=== PATIENT | male | born 1960 | race Caucasian/White ===

== ENCOUNTER 2017-03-13 19:55 | Emergency (ER) | payer MEDICARE, BC ==
[~2017-03-13] VITALS: Ht 172.7 cm; Wt 76.2 kg
[~2017-03-13 19:55] MED LIST: BENADRYL25 M2 PO; BUSPAR10 MG PO; COREG CR20 MG PO; COUMADIN5 MG ORAL; DIOVAN160 MG PO; LEVAQUIN500 MG PO; PREDNISONE20 MG ORAL
[2017-03-13] MEDS ORDERED: SPIRONOLACTONE25 MG ORAL (20:31)
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
[2017-03-13] MEDS ORDERED: Bacitracin Oint UD TOPIC ONE ×2 (21:41→21:45)
[2017-03-13] MEDS ORDERED: KEFLEX500 MG ORAL (21:42)
[2017-03-13] MEDS ORDERED: Cephalexin 500mg cap ORAL ONE (21:45)
[2017-03-13 21:46] VITALS: BP 124/70
[2017-03-13 21:48] VITALS: BP 124/70
--- NOTE | 2017-03-14 08:29 | Diagnostic Imaging Report ---
Indications: Head trauma, pain Technique: Continuous helical CT imaging of the brain was performed with automatic exposure control on a Siemens sensation [address] scanner. Axial and coronal images were reconstructed at 5 mm slice thickness and interval. CTDI volume(s): 70 mGy Total DLP: 1361 mGy-cm Findings: Comparison: None. Small circumscribed focus of low attenuation/parenchymal loss inferior aspect left putamen. Multiple small nodular calcifications in the parenchyma both cerebral hemispheres.. No evidence of mass or hemorrhage, other attenuation abnormality, mass effect, midline shift, hydrocephalus or increased intracranial pressure. Bone window images are unremarkable. Mucoperiosteal thickening bilateral ethmoid, right maxillary sinuses. Remainder visualized paranasal sinuses and mastoid air cells are clear. 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 This correlates with Dr. Fleming's preliminary report. The CT scanner at [facility] is accredited by the [employer] and the scans are performed using protocols designed to limit radiation exposure to as low as reasonably achievable to attain images of sufficient resolution adequate for diagnostic evaluation.
== END 2017-03-13 21:49 | disposition home or self-care (01) ==
LOC: EMR 20:10
DX: S01.511A Laceration without foreign body of lip, initial encounter (principal); S01.512A Laceration without foreign body of oral cavity, initial encounter; S01.01XA Laceration without foreign body of scalp, initial encounter; Y04.2XXA Assault by strike against or bumped into by another person, initial encounter; Y92.89 Other specified places as the place of occurrence of the external cause; Z85.46 Personal history of malignant neoplasm of prostate; J32.9 Chronic sinusitis, unspecified; B69.0 Cysticercosis of central nervous system
CPT/HCPCS: 70450

== ENCOUNTER 2017-03-21 16:18 | Emergency (ER) | payer MEDICARE, BC ==
[~2017-03-21] VITALS: Ht 172.7 cm; Wt 76.7 kg
[~2017-03-21 16:18] MED LIST changes: +KEFLEX500 MG ORAL; +SPIRONOLACTONE25 MG ORAL
[2017-03-21 16:25] VITALS: BP 148/79
[2017-03-21 17:00] VITALS: BP 148/79
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
== END 2017-03-21 17:00 | disposition home or self-care (01) ==
LOC: EMR 16:45
DX: S01.01XD Laceration without foreign body of scalp, subsequent encounter (principal); Z48.02 Encounter for removal of sutures; S51.812D Laceration without foreign body of left forearm, subsequent encounter; S01.511D Laceration without foreign body of lip, subsequent encounter; X58.XXXD Exposure to other specified factors, subsequent encounter
CPT/HCPCS: 99281

== ENCOUNTER 2018-12-29 17:48 | Emergency (ER) | payer MEDICARE, BC ==
[~2018-12-29] VITALS: Ht 172.7 cm; Wt 78.9 kg
[2018-12-29 18:00] VITALS: BP 137/75
--- NOTE | 2018-12-29 18:00 | NUR ---
ED Nurse Note: pt walked in due to laceration on right 5th finger and left thumb happend last night about 10:30pm when pt is washing dishes and held a mesh cutter glassware. pt denies pain. pt wound noted to be bleeding on the 5th finger, has a irregular laceration, wound cleanse with h202 as per pa order. pa on bedside. will continue to monitor.
[2018-12-29] MEDS ORDERED: Lidocaine 2% MPF 5ml Vial INJ ONE (18:15)
[2018-12-29] MEDS ORDERED: Bacitracin Oint UD TOPIC ONE (18:15)
[2018-12-29] MEDS ORDERED: Hydrogen Peroxide 473ml Bottle TOPIC ONE (18:15)
--- NOTE | 2018-12-29 18:19 | Emergency Room Report ---
History of Present Illness General Chief Complaint: Laceration Source: Patient Present Illness HPI 58-year-old male presents to the emergency department complaining of 5/10 in severity pain with 2 lacerations that he sustained last night while attempting to clean a glass which broke. Patient states that he is taking Coumadin and despite his efforts he continues to have some oozing primarily out of the laceration over his right fifth digit. Patient states that he is not up-to- date with the [place] versions of tetanus however he states that he has proper immunity as the type they administer [place] give life-long immunity and he received it. Pt. with cardiac hx. He denies erythema, warmth or paresthesias. Pt. states pain with palpation of the open wound. Denies inability to flex and extend the affected finger. pt. states he is right hand dominant. Pt. states he cleaned the wounds well and applied a hemostasis cream which slowed down bleeding but was unable to stop it. Allergies: Coded Allergies: No Known Allergies (Unverified , 10/29/12) Patient History Past Medical History: see triage record Past Surgical History: none Pertinent Family History: none Reviewed Nursing Documentation: PMH: Agreed; PSxH: Agreed Nursing Documentation-PMH Past Medical History: No History, Except For Hx Hypertension: Yes Hx Cancer: Yes - PROSTATE 2009 Review of Systems All Other Systems: negative except mentioned in HPI Physical Exam Vital Signs Date Time Temp Pulse Resp B/P (MAP) Pulse Ox O2 Delivery O2 Flow Rate FiO2 12/29/18 17:51 98.1 63 17 137/75 (95) 99 Room Air Sp02 EP Interpretation: reviewed, normal General Appearance: no apparent distress, alert, GCS 15, non-toxic Head: normocephalic, atraumatic Eyes: bilateral eye normal inspection, bilateral eye PERRL ENT: hearing grossly normal, normal voice Neck: full range of motion Respiratory: lungs clear, normal breath sounds, speaking full sentences Cardiovascular #1: regular rate, rhythm Musculoskeletal: back normal, gait/station normal, normal range of motion, non- tender, other - FROM of the right 5th digit Neurologic: alert, oriented x3, responsive, motor strength/tone normal, sensory intact, normal gait, speech normal, grossly normal Psychiatric: judgement/insight normal Skin: normal color, no rash, warm/dry, well hydrated, laceration - 3cm dorsal right 5th digit flap laceration, and 1cm flap laceration to the left palm at the thenar aspect. Procedures Laceration/Wound Repair Laceration/Wound Repair : Consent: Verbal Wound Location: upper extremity - right 5th digit. Wound's Depth, Shape: flap Wound Explored: contaminated - grossly contaminated Wound Repaired With: Steri-strips - 3 Sterile Dressing Applied?: Yes Splint Applied?: Yes - finger splint Sling Applied?: No Patient Tolerated: Well Complications: None Medical Decision Making PA Attestation Dr. Landry is my supervising Physician whom patient management has been discussed with. Diagnostic Impression: Primary Impression: Laceration ER Course 58-year-old male presents to the emergency department complaining of 5/10 in severity pain with 2 lacerations that he sustained last night while attempting to clean a glass which broke. Patient states that he is taking Coumadin and despite his efforts he continues to have some oozing primarily out of the laceration over his right fifth digit. Patient states that he is not up-to- date with the [place] versions of tetanus however he states that he has proper immunity as the type they administer [place] give life-long immunity and he received it. Pt. with cardiac hx. He denies erythema, warmth or paresthesias. Pt. states pain with palpation of the open wound. Denies inability to flex and extend the affected finger. pt. states he is right hand dominant. Pt. states he cleaned the wounds well and applied a hemostasis cream which slowed down bleeding but was unable to stop it. Ddx considered but are not limited to laceration, tendon injury, cellulitis, amputation, FB just to name a few. Vital signs: are WNL, pt. is afebrile H&PE are most consistent with: 3cm dorsal right 5th digit flap laceration, and 1cm flap laceration to the left palm at the thenar aspect. ORDERS: -- X-ray hand ordered, however pt. reported being in a hurry as he has plans tonight and declined. ED INTERVENTIONS: -Pt declines tdap. - The wound was copiously irrigated with normal saline, and explored for foreign body for which no FB was found. - TXA applied to gauze and hemostasis was achieved to the dorsum of the right 5th digit - Several steri-strips were used to lightly approximate the edges. -Right 5th digit finger Splint applied by RN, Pt. remains neurovascularly intact. Bacitracin and dressing applied to the left palm laceration. Hemostasis was already achieved at time of ED exam. Given that this wound was approximately 20 hours old it was determined that primary closure but increases patient's risk for infection and therefore wound will be approximated however official closure will not be performed and the wound will heal by secondary intent. DISCHARGE: At this time pt. is stable for d/c to home. Will provide printed patient care instructions, and any necessary prescriptions. Care plan and follow up instructions have been discussed with the patient prior to discharge. Last Vital Signs Date Time Temp Pulse Resp B/P (MAP) Pulse Ox O2 Delivery O2 Flow Rate FiO2 12/29/18 17:51 98.1 63 17 137/75 (95) 99 Room Air Status: improved Disposition: HOME, SELF-CARE Condition: Stable Scripts Cephalexin* (KEFLEX*) 500 Mg Capsule 500 MG ORAL EVERY 12 HOURS for 7 Days, #14 CAP 0 Refills Prov: Blank Wyatt 12/29/18 Referrals: NOT CHOSEN IPA/MD,REFERRING (PCP) Patient Instructions: Nonsutured Laceration Care Additional Instructions: Take medications as directed. Follow up with a Primary Care Provider in 3-5 days, even if your symptoms have resolved. Return sooner to ED if new symptoms occur, or current symptoms become worse. - Please note that this Emergency Department Report was dictated using [employer] technology software, occasionally this can lead to erroneous entry secondary to interpretation by the dictation equipment. Blank Wyatt Dec 29, 2018 18:19
--- NOTE | 2018-12-29 18:30 | NUR ---
ED Nurse Note: pt medicated and tolerated well.
[2018-12-29] MEDS ORDERED: CEPHALEXIN500 MG ORAL (18:48)
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
[2018-12-29 19:12] VITALS: BP 137/75
--- NOTE | 2018-12-29 19:12 | NUR ---
ER DISCHARGE NOTE: Patient is cleared to be discharged per ERMD, pt is aox4, on room air, with stable vital signs.pt 5th not bleeding anymore, steri strip applied by nicolas galdamez. pt was given dc and prescription instructions, pt was able to verbalize understanding, pt id band removed without complications. pt is able to ambulate with steady gait. pt took all belongings.
== END 2018-12-29 19:12 | disposition home or self-care (01) ==
LOC: EMR 18:04
DX: S61.216A Laceration without foreign body of right little finger without damage to nail, initial encounter (principal); W25.XXXA Contact with sharp glass, initial encounter; Y92.9 Unspecified place or not applicable; I10 Essential (primary) hypertension; Z85.46 Personal history of malignant neoplasm of prostate
CPT/HCPCS: 29130; 99283